=== PATIENT | female | born 1945 | race Caucasian/White ===

== ENCOUNTER 2018-02-02 06:00 | Outpatient (RCR) | payer MEDICARE, OTHER ==
[~2018-02-02 06:00] MED LIST: ALN70T; DOXY100C42 PO; NFCORC1000; PNT400TCR
== END 2018-02-08 | disposition home or self-care (01) ==
LOC: CR3 06:00
PROVIDERS: ATTEND Family Medicine
DX: Z29.8 Encounter for other specified prophylactic measures (principal)

== ENCOUNTER 2018-03-17 17:01 | Outpatient (RCR) | payer MEDICARE, OTHER | END 2018-03-22 | disposition home or self-care (01) | LOC: CR3 17:01 | PROVIDERS: ATTEND Family Medicine | DX: Z29.8 Encounter for other specified prophylactic measures (principal) ==

== ENCOUNTER → 2018-05-26 | Outpatient (RCR) | payer MEDICARE, OTHER | END | disposition home or self-care (01) | LOC: CR3 04-26 15:00 | PROVIDERS: ATTEND Family Medicine | DX: Z29.8 Encounter for other specified prophylactic measures (principal) ==

== ENCOUNTER → 2018-06-28 | Outpatient (RCR) | payer MEDICARE, OTHER | END | disposition home or self-care (01) | LOC: CR3 05-29 13:00 | PROVIDERS: ATTEND Family Medicine | DX: Z29.8 Encounter for other specified prophylactic measures (principal) ==

== ENCOUNTER 2018-07-28 13:13 | Outpatient (RCR) | payer MEDICARE, OTHER | END 2018-07-29 | disposition home or self-care (01) | LOC: CR3 13:13 | PROVIDERS: ATTEND Family Medicine | DX: Z29.8 Encounter for other specified prophylactic measures (principal) ==

== ENCOUNTER → 2018-09-06 | Outpatient (RCR) | payer MEDICARE, OTHER | END | disposition home or self-care (01) | LOC: CR3 08-07 13:00 | PROVIDERS: ATTEND Family Medicine | DX: Z29.8 Encounter for other specified prophylactic measures (principal) ==

== ENCOUNTER 2018-10-06 15:36 | Outpatient (RCR) | payer MEDICARE, OTHER | END 2018-10-07 | disposition home or self-care (01) | LOC: CR3 15:36 | PROVIDERS: ATTEND Family Medicine | DX: Z29.8 Encounter for other specified prophylactic measures (principal) ==

== ENCOUNTER 2018-11-10 15:14 | Outpatient (RCR) | payer MEDICARE, OTHER | END 2018-11-11 | disposition home or self-care (01) | LOC: CR3 15:14 | PROVIDERS: ATTEND Family Medicine | DX: Z29.8 Encounter for other specified prophylactic measures (principal) ==

== ENCOUNTER → 2019-01-03 | Outpatient (RCR) | payer MEDICARE, OTHER | END | disposition home or self-care (01) | LOC: CR3 12-04 13:00 | PROVIDERS: ATTEND Family Medicine | DX: Z29.8 Encounter for other specified prophylactic measures (principal) ==

== ENCOUNTER 2019-02-01 06:00 | Outpatient (RCR) | payer MEDICARE, OTHER | END 2019-02-03 | disposition home or self-care (01) | LOC: CR3 06:00 | PROVIDERS: ATTEND Family Medicine | DX: Z29.8 Encounter for other specified prophylactic measures (principal) ==

== ENCOUNTER → 2019-03-23 | Outpatient (RCR) | payer MEDICARE, OTHER | END | disposition home or self-care (01) | LOC: CR3 02-21 13:00 | PROVIDERS: ATTEND Family Medicine | DX: Z29.8 Encounter for other specified prophylactic measures (principal) ==

== ENCOUNTER 2019-04-20 14:43 | Outpatient (RCR) | payer MEDICARE, OTHER | END 2019-04-25 | disposition home or self-care (01) | LOC: CR3 14:43 | PROVIDERS: ATTEND Family Medicine | DX: Z29.8 Encounter for other specified prophylactic measures (principal) ==

== ENCOUNTER 2019-05-25 14:19 | Outpatient (RCR) | payer MEDICARE, OTHER | END 2019-05-27 | disposition home or self-care (01) | LOC: CR3 14:19 | PROVIDERS: ATTEND Family Medicine | DX: Z29.8 Encounter for other specified prophylactic measures (principal) ==

== ENCOUNTER 2019-06-06 15:01 | Outpatient (RCR) | payer MEDICARE, OTHER | END 2019-06-27 | disposition home or self-care (01) | LOC: CR3 15:01 | PROVIDERS: ATTEND Family Medicine | DX: Z29.8 Encounter for other specified prophylactic measures (principal) ==

== ENCOUNTER 2019-08-03 13:16 | Outpatient (RCR) | payer MEDICARE, OTHER | END 2019-08-05 | disposition home or self-care (01) | LOC: CR3 13:16 | PROVIDERS: ATTEND Family Medicine | DX: Z29.8 Encounter for other specified prophylactic measures (principal) ==

== ENCOUNTER → 2019-09-05 | Outpatient (RCR) | payer MEDICARE, OTHER | END | disposition home or self-care (01) | LOC: CR3 08-06 14:00 | PROVIDERS: ATTEND Family Medicine | DX: Z29.8 Encounter for other specified prophylactic measures (principal) ==

== ENCOUNTER 2019-09-18 01:16 | Emergency (ER) | payer MEDICARE, OTHER ==
[~2019-09-18] VITALS: Ht 175.2 cm; Wt 95.2 kg
[2019-09-18] MEDS ORDERED: TRANEXAMIC ACID 100 MG/ML 10 ML INJECTION IV ONE (01:22)
[2019-09-18] MEDS ORDERED: TRANEXAMIC ACID INJECTION 1,000 MG in NS (IVPB) 100 ML IV ONE (01:30)
--- NOTE | 2019-09-18 01:34 | ED EENT ---
History of Present Illness General Chief Complaint: Dental Problems/Pain Stated Complaint: TOOTH PULLED,WON'T STOP BLEEDING Source: patient Exam Limitations: no limitations History of Present Illness Date Seen by Provider: Sep 18, 2019 Time Seen by Provider: 01:16 Initial Comments Patient presents to ER by private conveyance from home with chief complaint she had a tooth pulled on her left upper posterior teeth earlier today and has not been able to get stop bleeding. She does take a baby aspirin daily but no blood thinners. She called her dentist and he said just placed gauze and hold it in place. She says she does that and it stops bleeding but then she pulls gauze out the clot comes with it. She's not having significant pain. She denies a history of anemia. Allergies and Home Medications Allergies Coded Allergies: Penicillins (Verified Allergy, Unknown, 10/11/08) Home Medications Doxycycline Monohydrate 100 Mg Capsule, 100 MG PO BID Prescribed by: VI MAE on 01/13/16 1519 Patient Home Medication List Home Medication List Reviewed: Yes Review of Systems Review of Systems Constitutional: No chills, No diaphoresis Eyes: Denies Blindness, Denies Blurred Vision Ears: Denies Dizziness, Denies Pain Nose: denies clots, denies congestion Mouth: clots, bloody discharge Throat: denies pain, denies swelling Respiratory: No cough, No short of breath Cardiovascular: No chest pain, No edema All Other Systems Reviewed Negative Unless Noted: Yes Past [id number]-Ulnppl-Wpjcvv Hx Patient Social History Alcohol Use: Denies Use Recreational Drug Use: No Smoking Status: Never a Smoker Recent Foreign Travel: No Contact w/Someone Who Travel: No Past Medical History Adenoidectomy, Appendectomy, Breast, Section, Gallbladder, Orthopedic, Tonsillectomy, Vascular Surgery Hypertension, Peripheral Vascular Reproductive Disorders: No EXTRA HAND History: Menopausal Osteoporosis, Arthritis, Fractures Breast Physical Exam Height, Weight, BMI Height: 5'9.00" Weight: 209lbs. oz. 94.672544wv; BMI Method:Stated General Appearance: WD/WN, no apparent distress Eyes: bilateral eye normal inspection, bilateral eye PERRL, bilateral eye EOMI Ears: bilateral ear auricle normal, bilateral ear canal normal, bilateral ear TM normal Nose: normal inspection; No active bleeding Mouth/Throat: other (blood clot associated with gauze packing in the left upper molar socket) Neck: full range of motion, normal inspection Cardiovascular: normal peripheral pulses, regular rate, rhythm Respiratory: no respiratory distress, no accessory muscle use Progress/Results/Core Measures Results/Orders My Orders Orders - PIOTR AVILA Tranexamic Acid Injection (Cyklokapron I (09/18/19 01:30) Tranexamic Acid Injection (Cyklokapron I (09/18/19 01:22) Progress Progress Note : Time: 01:31 Progress Note Impregnated a gram of TXA and some gauze and packed it up in the socket. Instructed her to go home and suck on the tea bag for the tannins. Departure Impression Primary Impression: Surgical wound hemorrhage after dental procedure Disposition: HOME, SELF-CARE Condition: Stable Departure-Patient Inst. Decision time for Depature: 01:32 Referrals: PRINCE APONTE MD (PCP/Family) Primary Care Physician Patient Instructions: Bleeding After Surgery Add. Discharge Instructions: Gauze and direct pressure by biting down. Go home and sleep the tea bag of flavor of your choice and then when it has cooled down place it in the socket as well to let the tannins work your way up into the wound and help stop the bleeding. Follow-up with your dentist as necessary. All discharge instructions reviewed with patient and/or family. Voiced understanding. PIOTR AVILA Sep 18, 2019 01:34
[2019-09-18 01:39] VITALS: BP 134/79
== END 2019-09-18 01:39 | disposition home or self-care (01) ==
LOC: EDUNIT# 01:16 → ER 01:18
DX: K91.840 Postprocedural hemorrhage of a digestive system organ or structure following a digestive system procedure (principal); I10 Essential (primary) hypertension; Z88.0 Allergy status to penicillin; Z90.89 Acquired absence of other organs; Z90.49 Acquired absence of other specified parts of digestive tract
CPT/HCPCS: 96374; 99283

== ENCOUNTER 2019-10-05 15:51 | Outpatient (RCR) | payer MEDICARE, OTHER | END 2019-10-07 | disposition home or self-care (01) | LOC: CR3 15:51 | PROVIDERS: ATTEND Family Medicine | DX: Z29.8 Encounter for other specified prophylactic measures (principal) ==

== ENCOUNTER → 2019-11-09 | Outpatient (RCR) | payer MEDICARE, OTHER ==
--- NOTE | 2019-11-06 17:46 | NUR ---
TRIED CONTACTING PTS (PT AND THEIR SPOUSE AND CHILD IN WELLNESS) FOR INFECTIOUS DISEASE SCREENING (PER ADMINISTRATION ORDERS); NO ANSWER FROM PT.
== END | disposition home or self-care (01) ==
LOC: CR3 10-10 14:00
PROVIDERS: ATTEND Family Medicine
DX: Z29.8 Encounter for other specified prophylactic measures (principal)

== ENCOUNTER → 2020-03-21 | Outpatient (CLI) | payer MEDICARE, OTHER | LOC: WOUNDCARE 08:05 | PROVIDERS: ATTEND Orthopaedic Surgery Hand Surgery | DX: L97.322 Non-pressure chronic ulcer of left ankle with fat layer exposed (principal); I87.2 Venous insufficiency (chronic) (peripheral); I73.9 Peripheral vascular disease, unspecified; Z88.0 Allergy status to penicillin; Z87.891 Personal history of nicotine dependence; Z85.3 Personal history of malignant neoplasm of breast; Z79.899 Other long term (current) drug therapy | CPT/HCPCS: 97597; G0463 ==

== ENCOUNTER → 2020-03-26 | Outpatient (CLI) | payer MEDICARE, OTHER | LOC: WOUNDCARE 14:44 | PROVIDERS: ATTEND Surgery | DX: L97.322 Non-pressure chronic ulcer of left ankle with fat layer exposed (principal); I87.332 Chronic venous hypertension (idiopathic) with ulcer and inflammation of left lower extremity; I96 Gangrene, not elsewhere classified | CPT/HCPCS: 11042; A6260; G0463 ==

== ENCOUNTER → 2020-04-02 | Outpatient (CLI) | payer MEDICARE, OTHER | LOC: WOUNDCARE 11:12 | PROVIDERS: ATTEND Surgery | DX: L97.322 Non-pressure chronic ulcer of left ankle with fat layer exposed (principal); I87.332 Chronic venous hypertension (idiopathic) with ulcer and inflammation of left lower extremity; I96 Gangrene, not elsewhere classified | CPT/HCPCS: 11042; A6212; G0463 ==

== ENCOUNTER → 2020-04-16 | Outpatient (CLI) | payer MEDICARE, OTHER | LOC: WOUNDCARE 10:00 | PROVIDERS: ATTEND Surgery | DX: L97.322 Non-pressure chronic ulcer of left ankle with fat layer exposed (principal); I87.332 Chronic venous hypertension (idiopathic) with ulcer and inflammation of left lower extremity; I96 Gangrene, not elsewhere classified | CPT/HCPCS: 11042; G0463 ==

== ENCOUNTER → 2020-04-23 | Outpatient (CLI) | payer MEDICARE, OTHER | LOC: WOUNDCARE 09:58 | PROVIDERS: ATTEND Surgery | DX: I96 Gangrene, not elsewhere classified (principal); L97.322 Non-pressure chronic ulcer of left ankle with fat layer exposed; I87.332 Chronic venous hypertension (idiopathic) with ulcer and inflammation of left lower extremity | CPT/HCPCS: 11042; A6196; G0463 ==

== ENCOUNTER → 2020-04-30 | Outpatient (CLI) | payer MEDICARE, OTHER | LOC: WOUNDCARE 09:57 | PROVIDERS: ATTEND Surgery | DX: L97.322 Non-pressure chronic ulcer of left ankle with fat layer exposed (principal); I87.332 Chronic venous hypertension (idiopathic) with ulcer and inflammation of left lower extremity; I96 Gangrene, not elsewhere classified | CPT/HCPCS: 11042; G0463 ==

== ENCOUNTER → 2020-05-07 | Outpatient (CLI) | payer MEDICARE, OTHER | LOC: WOUNDCARE 10:01 | PROVIDERS: ATTEND Surgery | DX: L97.322 Non-pressure chronic ulcer of left ankle with fat layer exposed (principal); I87.332 Chronic venous hypertension (idiopathic) with ulcer and inflammation of left lower extremity; I96 Gangrene, not elsewhere classified | CPT/HCPCS: 11042; G0463 ==

== ENCOUNTER → 2020-05-14 | Outpatient (CLI) | payer MEDICARE, OTHER | LOC: WOUNDCARE 09:59 | PROVIDERS: ATTEND Surgery | DX: L97.322 Non-pressure chronic ulcer of left ankle with fat layer exposed (principal); I87.332 Chronic venous hypertension (idiopathic) with ulcer and inflammation of left lower extremity; I96 Gangrene, not elsewhere classified | CPT/HCPCS: 99213 ==

== ENCOUNTER → 2020-05-21 | Outpatient (CLI) | payer MEDICARE, OTHER | LOC: WOUNDCARE 09:59 | PROVIDERS: ATTEND Surgery | DX: I96 Gangrene, not elsewhere classified (principal); L97.322 Non-pressure chronic ulcer of left ankle with fat layer exposed; I87.332 Chronic venous hypertension (idiopathic) with ulcer and inflammation of left lower extremity | CPT/HCPCS: 11042; G0463 ==

== ENCOUNTER → 2020-05-28 | Outpatient (CLI) | payer MEDICARE, OTHER | LOC: WOUNDCARE 09:59 | PROVIDERS: ATTEND Surgery | DX: L97.322 Non-pressure chronic ulcer of left ankle with fat layer exposed (principal); I87.333 Chronic venous hypertension (idiopathic) with ulcer and inflammation of bilateral lower extremity; I96 Gangrene, not elsewhere classified | CPT/HCPCS: 99213 ==

== ENCOUNTER → 2020-06-04 | Outpatient (CLI) | payer MEDICARE, OTHER | LOC: WOUNDCARE 09:57 | PROVIDERS: ATTEND Surgery | DX: I96 Gangrene, not elsewhere classified (principal); L97.322 Non-pressure chronic ulcer of left ankle with fat layer exposed; I87.332 Chronic venous hypertension (idiopathic) with ulcer and inflammation of left lower extremity | CPT/HCPCS: 99213 ==

== ENCOUNTER → 2020-06-11 | Outpatient (CLI) | payer MEDICARE, OTHER | LOC: WOUNDCARE 09:59 | PROVIDERS: ATTEND Surgery | DX: L97.322 Non-pressure chronic ulcer of left ankle with fat layer exposed (principal); I87.332 Chronic venous hypertension (idiopathic) with ulcer and inflammation of left lower extremity; I96 Gangrene, not elsewhere classified | CPT/HCPCS: 99212 ==

== ENCOUNTER 2020-12-19 14:55 | Outpatient (RCR) | payer MEDICARE, OTHER | END 2021-01-13 15:00 | disposition home or self-care (01) | PROVIDERS: ATTEND Family Medicine | DX: M54.5 Low back pain (principal) ==

== ENCOUNTER → 2021-01-02 | Outpatient (RCR) | payer MEDICARE, OTHER | END | disposition home or self-care (01) | LOC: CR3 12-03 14:49 | PROVIDERS: ATTEND Family Medicine | DX: Z29.8 Encounter for other specified prophylactic measures (principal) ==

== ENCOUNTER → 2021-02-04 | Outpatient (RCR) | payer MEDICARE, OTHER | END | disposition home or self-care (01) | LOC: CR3 01-05 16:00 | PROVIDERS: ATTEND Family Medicine | DX: Z29.8 Encounter for other specified prophylactic measures (principal) ==

== ENCOUNTER 2021-03-06 14:41 | Outpatient (RCR) | payer MEDICARE, OTHER ==
[~2021-03-06 14:41] MED LIST changes: +DOXY-311 PO; -DOXY100C42 PO
== END 2021-03-08 | disposition home or self-care (01) ==
LOC: CR3 14:41
PROVIDERS: ATTEND Family Medicine
DX: Z29.8 Encounter for other specified prophylactic measures (principal)

== ENCOUNTER → 2021-04-08 | Outpatient (RCR) | payer MEDICARE, OTHER | END | disposition home or self-care (01) | LOC: CR3 03-09 14:00 | PROVIDERS: ATTEND Family Medicine | DX: Z29.8 Encounter for other specified prophylactic measures (principal) ==

== ENCOUNTER 2021-04-10 14:37 | Outpatient (RCR) | payer MEDICARE, OTHER | END 2021-05-10 | disposition home or self-care (01) | LOC: CR3 14:37 | PROVIDERS: ATTEND Family Medicine | DX: Z29.8 Encounter for other specified prophylactic measures (principal) ==